=== PATIENT | female | born 1970 | race Caucasian/White ===

== ENCOUNTER 2022-11-18 14:09 | Outpatient (CLI) | payer BC, SELFPAY ==
--- NOTE | 2022-11-18 14:30 | MR_ITS ---
[address] [address] Phone:?[phone] Fax:?[phone] Referring Physician Information: Darrin Mortensen M.D. [id number] [facility] [address] Phone:?[phone] Fax:?[phone] Patient:Renzo Ortiz D.O.B:?1970 Sex:?Female Phone:?[phone] [facility] MRN:?[id number] Exam Date:?11/18/2022 EXAM: MRI EXAMINATION OF THE LEFT SHOULDER CLINICAL INFORMATION: Left shoulder pain. No specific injury. No history of surgery to this area. Possible rotator cuff tendon tear. TECHNICAL INFORMATION: Coronal STIR as well as axial, sagittal and coronal PD and T2-weighted images acquired. No prior studies for comparison. INTERPRETATION: Bones: There is no Hill-Sachs impaction deformity. There is a poorly defined appearance of marrow edema signal involving the lesser tuberosity of the humerus. There is no other bone marrow edema pattern. Rotator Cuff: There is a diffuse appearance of high-grade tearing involving the supraspinatus tendon insertion with areas of full-thickness involvement of the mid to posterior tendon insertion. Markedly attenuated torn tendon fibers remain situated lateral to the mid humeral head level. More normal caliber tendon fibers are situated midway between the glenohumeral joint and mid humeral head level. No fatty muscle belly atrophy. There is a 1 cm AP by 1.9 cm mediolateral segment of deep fiber partial tearing involving the infraspinatus tendon and maximally involving two thirds of the tendon fiber thickness. The tear is situated just proximal to the tendon insertion. The teres minor tendon is intact. There is a 1.2 cm craniocaudal segment of poorly defined and high-grade deep fiber partial tearing involving the superior subscapularis tendon. No appreciable rotator cuff muscle belly atrophy. Coracoacromial arch: There is no discrete subacromial osseous spur. The bony acromiohumeral interval is measuring 5 to 6 mm. There is an underlying thickening identified of the coracoacromial ligament. Acromioclavicular joint: There is a moderate appearance of AC joint DJD. No deformity of the underlying supraspinatus tendon. Biceps tendon: There is medial subluxation of the long head biceps tendon from the level of the superior bicipital groove. Tendinopathy with moderate grade partial thickness tearing and fraying of the tendon traversing this level. The tendon remains intact intra-articular. Glenohumeral joint and labrum: There is a small to moderate glenohumeral joint effusion. No discrete loose body within the joint. Osteochondral surfaces appear relatively preserved. No discrete SLAP tear. No other definite evidence for labral tear. No discrete paralabral cyst is identified. CONCLUSION: 1. Diffuse high-grade tearing along the supraspinatus tendon insertion with apparent areas of full-thickness involvement of the mid to posterior tendon. Markedly attenuated torn tendon fibers remain situated lateral to the mid humeral head level. More normal caliber tendon fibers are situated midway between the glenohumeral joint and mid humeral head level. No muscle belly atrophy. 2. There is a small to moderate-sized segment of partial-thickness deep fiber tearing of the infraspinatus tendon situated proximal to the tendon insertion and maximally involving two thirds of the tendon fiber thickness. 3. There is a moderate-sized segment of poorly defined high-grade deep fiber partial tear involving the superior subscapularis tendon. 4. Moderate AC joint DJD with mild to moderate narrowing of the acromiohumeral interval. 5. Biceps annelise lesion with medial subluxation of the long head biceps tendon from the superior bicipital groove. Tendinopathy with moderate grade partial thickness tearing and fraying of the tendon traversing this level. 6. No appreciable glenohumeral chondromalacia. There is a small to moderate joint effusion. KES Electronically signed on 11/21/2022 7:44:00 AM by Jayme Marks M.D.
== END 2022-11-18 14:10 | disposition home or self-care (01) ==
LOC: MRI 14:10
PROVIDERS: PCP Physician Assistant Medical; Visit Provider Orthopaedic Surgery Sports Medicine
DX: M25.512 Pain in left shoulder (principal); M75.102 Unspecified rotator cuff tear or rupture of left shoulder, not specified as traumatic; S46.812A Strain of other muscles, fascia and tendons at shoulder and upper arm level, left arm, initial encounter; M19.012 Primary osteoarthritis, left shoulder; M25.412 Effusion, left shoulder
CPT/HCPCS: 73221

== ENCOUNTER 2022-12-19 08:34 | Day surgery (SDC) | payer BC, SELFPAY ==
[2022-12-19] VITALS (14 sets, daily range): BP systolic 107–137; BP diastolic 69–99; PULSE 54–83; RESP 16; TEMP 36.2–36.8; O2SAT 90–97; BMI 39.7
[2022-12-19] MEDS: LACTATED RINGERS 1000 ML 1,000 ML 100 ML IV (09:20)
[2022-12-19] MEDS: SODIUM CHLORIDE 0.9 % (FLUSH) 10 ML SYRINGE IVF (09:20)
--- NOTE | 2022-12-19 09:55 | SUR.PREOP ---
TIME?OUT:?0957 PT/RN/MDA?VERIFICATION?OF?SURGICAL?SITE,?PROCEDURE,?AND?CONSENT OBTAINED?PRIOR?TO?INVASIVE?PROCEDURE.
[2022-12-19] MEDS: EPINEPHrine 1 MG in SODIUM CHLORIDE IRRIG SOLUTION 3,000 ML 9003 MG IRRIGATION ×6 (10:43→11:58)
--- NOTE | 2022-12-19 10:54 | W.ANESCHARGE ---
Anesthesia Charges Start Date/Time Anesthesia Start Date: 12/19/22 Anesthesia Start Time: 10:04 Stop Date/Time Anesthesia Stop Date: 12/19/22 Anesthesia Stop Time: 12:42
--- NOTE | 2022-12-19 10:55 | W.PM.NB ---
Nerve Block Nerve Block Time Seen by Provider: 09:59 Date Seen: 12/19/22 Type of block requested by surgeon for post-operative analgesia: supraclavicular Side: left Time out performed: Yes Verification of patient name: Yes Verification of date of : Yes Site marking: site marked Name of person performing procedure: Peter Continuous monitoring Was continuous monitoring of O2 sat, B/P, plasterer apprentice, recorded every 15 minutes?: Yes Procedure Checklist: sterile prep, needles and gloves Ultrasound guided. Images saved: Yes Medications given in 5ml increments after negative aspiration: Ropivicaine %: 0.5 mL: 20 Needle gauge: 22 Decadron (mg): 10 Precedex (mcg): 25 Patient tolerated procedure well: Yes Block Charges Block Charge (with Pro Fee): Brachial Plexus Use of Ultrasound Machine for Block: Yes- US Guidance/pain block
--- NOTE | 2022-12-19 12:25 | PM.ORPRC ---
Procedure Note Date of procedure: 12/19/22 Procedure: PREOPERATIVE DIAGNOSES: 1. Left shoulder rotator cuff tear. 2. Left shoulder AC degenerative joint disease, primary, moderate-severe 3. Left shoulder long of the biceps partial-thickness tearing and subluxation 4. Left shoulder labral tearing involving the anterior and superior aspect. 5. 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 Left shoulder subacromial impingement syndrome. POSTOPERATIVE DIAGNOSES: 1. Left shoulder rotator cuff tear-upper border subscapularis; full-thickness supraspinatus and anterior portion infraspinatus 2. Left shoulder AC degenerative joint disease, primary, moderate-severe 3. Left shoulder long of the biceps partial-thickness tearing and subluxation 4. Left shoulder labral tearing involving the anterior and superior aspect. 5. 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 Left shoulder subacromial impingement syndrome. NAME OF OPERATION: 1. Left shoulder arthroscopic rotator cuff repair-upper border subscapularis; also full-thickness supraspinatus and anterior portion infraspinatus 2. Left shoulder arthroscopic distal clavicle excision 3. Left shoulder arthroscopic extensive glenohumeral debridement including biceps tenotomy, debridement of biceps stump and labral torn tissue and humeral head loose chondral tissue 4. Left shoulder arthroscopic bursectomy, subacromial decompression/partial acromioplasty. SURGEON: Darrin Mortensen MD SHIP CLEANER: London Waters. Of note, a skilled sales assistant institutional sales was critical for this case to aide in patient positioning, suture manipulation, arm positioning, instrument positioning, and closure. ANESTHESIA: General plus preoperative supraclavicular block. EBL: 25 mL IMPLANTS: Arthrex 2.6 mm knotless FiberTak RC (x2); 4.75 mm BioComposite SwiveLock suture anchor (x1); 5.5 mm BioComposite SwiveLock suture anchor (x2). COMPLICATIONS: None evident INDICATIONS: The patient is a pleasant, 52-year-old female who has experienced left shoulder pain that has been increasing in recent time. Physical exam and imaging were consistent with a rotator cuff tear. Given their findings, as well as the weakness and pain, and inadequate response to nonoperative management, recommendation was made for surgery. FINDINGS: Exam under anesthesia revealed stable shoulder with excellent range of motion. The diagnostic arthroscopy revealed grade 3 chondromalacia humeral head anteriorly. The Subscapularis tendon was torn from its upper border with mild-moderate retraction. The long head of the biceps tendon was torn in a moderate grade partial-thickness manner near the bicipital groove. Additionally, it was subluxed out of the bicipital significantly. The superior rotator cuff tendon was found to be torn full-thickness throughout the entire supraspinatus and anterior 1/2 of the infraspinatus. The labrum was degeneratively frayed in the anterior and superior aspects. No loose bodies were identified within the pouch or subscapularis recess. PROCEDURE: Following a thorough discussion of risks, benefits, and alternatives, consent was obtained and the left shoulder was marked. The patient was brought to the operating room and placed supine on the operating table. Induction of anesthesia was completed after preoperative supraclavicular block was administered in preop holding. Appropriate time out was performed identifying proper patient, site, and procedure. 2 g IV Ancef was administered within 1 hour of incision preoperatively. The left upper extremity was prepped and draped in the appropriate sterile fashion using ChloraPrep prep. This was after the patient was positioned in the beach chair with their head in neutral alignment and all bony prominences well padded. The shoulder was insufflated with 20mL of normal saline via an 18g spinal needle from a posterior approach. An 11 blade skin incision allowed a blunt trochar to be inserted and diagnostic arthroscopy to be performed with the findings as noted above. An anterior portal was established with an outside in technique. This allowed the probe to be inserted and confirm the diagnostic arthroscopic findings. The shaver was then inserted and allowed debridement of the anterior and superior labrum as well as the biceps stump following arthroscopic biceps tenotomy. The anterior loose chondral tissue on the humeral head was also debrided with a shaver. Following this, the upper border subscapularis was repaired after debriding the lesser tuberosity with the shaver and [place] cautery. Subscapularis was captured in horizontal mattress fashion with a fiber tape suture. The tails were brought to a single anchor in the lesser tuberosity with excellent reapproximation of the subscap tendon and good excursion/tension. Thereafter, the subacromial space was entered. Here, a complete bursectomy and partial acromioplasty/subacromial decompression was performed with a combination of radiofrequency ablator, the shaver, and a 5.5 mm bur. Additionally, distal clavicle excision was performed with the bur. 8 mm of distal clavicle was resected based on the width of our bur. Further inspection of the supraspinatus and infraspinatus rotator cuff was performed. This identified the tear as noted above. The margins of the tear were debrided, and the greater tuberosity was debrided with a combination of the apollo cautery, shaver, and bur on reverse setting. After gentle decortication, a speed bridge configuration with a medial annelise was engaged. 2 knotless medial anchors were placed and the sutures were passed with a fiber link. The knotless mechanism suture tails were passed and cinched relatively tight but not fully. A tail from each of the medial row anchor FiberTapes were then brought to a lateral row anchor along with a luggage tag suture on the far posterior and far anterior aspect of the tail margins. Excellent reapproximation of the tissue to the greater tuberosity was achieved with broad footprint compression. Prior to anchor feedmobile driver removal, the eyelet sutures were tugged on for each anchor and found that the anchor had excellent stability within the bone. Following this, the knotless mechanism sutures were fully engaged with excellent security. The tails were cut accordingly. The shoulder was placed through range of motion and found to be stable. The rotator cuff was re-probed and found to be stable. Instruments were removed. Excess fluid was drained, closure performed with 4-0 Monocryl and Steri-Strips. Dressings were applied. Sling was applied. The patient was awoken from anesthesia and transferred to the PACU in stable condition. A skilled sales assistant institutional sales was critical for this case to aid in patient positioning, limb positioning, skill to manipulate arthroscopic instruments and camera, suture management, patient safety, and closure. PLAN: 1. Elbow, forearm, wrist and digit range of motion of operative extremity as tolerated. 2. Encouraged ice. 3. Percocet for pain as needed. 4. Sling at all times except for ROM and showering. 5. Follow up with PA visit in 1-2 weeks for wound check. Initiate physical therapy following that visit for passive range of motion. Initiate active assisted range of motion at 5-6 weeks due to a large tear size. May do pendulums now.
--- NOTE | 2022-12-19 12:56 | W.ANESCHARGE ---
Anesthesia Charges Start Date/Time Anesthesia Start Date: 12/19/22 Anesthesia Start Time: 10:04 Stop Date/Time Anesthesia Stop Date: 12/19/22 Anesthesia Stop Time: 12:42
== END 2022-12-19 14:39 | disposition home or self-care (01) ==
PROVIDERS: PCP Physician Assistant Medical; Visit Provider Orthopaedic Surgery Sports Medicine
PROC: (CPT 29805; principal; 2022-12-19 10:15)
DX: M75.102 Unspecified rotator cuff tear or rupture of left shoulder, not specified as traumatic (principal); M19.012 Primary osteoarthritis, left shoulder; S46.212A Strain of muscle, fascia and tendon of other parts of biceps, left arm, initial encounter; S43.432A Superior glenoid labrum lesion of left shoulder, initial encounter; M94.212 Chondromalacia, left shoulder; M75.42 Impingement syndrome of left shoulder; G89.18 Other acute postprocedural pain
CPT/HCPCS: 29827; 29828; 29826; 29823; 01630; 64415; 76942; C1713; J0171; J0330; J1100; J2250; J2405; J2704; J3010; J7120; L3670

== ENCOUNTER 2022-12-31 15:04 | Emergency (ER) | payer BC, SELFPAY ==
[2022-12-31 15:22] VITALS: BP 123/79; PULSE 73; RESP 18; TEMP 36.2; O2SAT 97; BMI 35.4
--- NOTE | 2022-12-31 15:36 | CRLHL7_ITS ---
For Patients: As a result of the Cures Act, medical imaging exams and procedure reports are released immediately into your electronic medical record. You may view this report before your referring provider. If you have questions, please contact your health care provider. INDICATION: Fall TECHNIQUE: Views of the left shoulder FINDINGS: Normal alignment. No acute fractures or acute osseous abnormalities. AC degenerative change. IMPRESSION: No acute fracture. Dictated by Flory Rae MD @ 12/31/2022 5:09:17 PM (Electronically Signed)
--- NOTE | 2022-12-31 15:37 | ED.GENADULT ---
HPI - General Adult General Chief complaint: Shoulder Injury/Pain Stated complaint: L shoulder injury Time Seen by Provider: 12/31/22 15:16 History of Present Illness HPI narrative: This 52-year-old female head her rotator cuff repaired of the left shoulder about 2 weeks ago. Today she tripped and fell onto her left side. She is wearing a sling and states that she wanted to the stretch out her arm to break the fall but was unable to do so because of the sling. She landed on her left upper arm. She has increased pain in her shoulder now. She did not hit her head or have any other injury. Related Data Home Medications Medication Instructions Recorded Confirmed cyanocobalamin (vitamin B-12) mcg subcut 11/11/22 12/29/22 1,000 mcg/mL injection solution (Dodex) duloxetine 60 mg capsule,delayed 60 mg PO DAILY 11/11/22 12/29/22 release Previous Rx's Medication Instructions Recorded oxycodone 5 mg tablet 5 mg PO Q4-8H PRN pain #10 tabs 12/29/22 oxycodone 5 mg capsule 5 mg PO Q6H PRN pain #10 caps 12/31/22 Allergies Allergy/AdvReac Type Severity Reaction Status Date / Time zolpidem Allergy Intermediate Verified 12/29/22 08:46 hydromorphone Allergy Mild Hives Verified 12/29/22 08:46 Penicillins Allergy Hives Verified 12/29/22 08:46 aspirin AdvReac Unknown post Verified 12/29/22 08:46 gastric bypass Review of Systems Status of ROS: Reports: 10 or more systems reviewed and unremarkable except as noted in History and below Narrative: Constitutional: No fevers, no weight gain or loss. Eyes: No discharge. No vision changes. HENT: No congestion, no sore throat, no ear pain. Cardiovascular: No chest pain, no palpitations. Respiratory: No shortness of breath, no wheezes, no cough. Gastrointestinal: No abdominal pain, no vomiting, no diarrhea. Genitourinary: No dysuria, no hematuria. Musculoskeletal: Left shoulder pain as described above. Skin: No rashes, no pruritis. Neurological: No dizziness, weakness, sensory change, speech change. Endo/Heme/Allergies: No bruising or bleeding. No polydipsia. Pysch: no suicidality, no anxiety, no insomnia. All other systems reviewed and are negative. PFSH PFS Medical History Metacarpal bone fracture ?S62.309A - Unspecified fracture of unspecified metacarpal bone, initial encounter for closed fracture (ICD-10) Crushing injury of left hand ?S67.22XA - Crushing injury of left hand, initial encounter (ICD-10) Closed head injury ?S09.90XA - Unspecified injury of head, initial encounter (ICD-10) Surgical History History of arthroscopy of left shoulder (12/19/22) ?Z98.890 - Other specified postprocedural states (ICD-10) H/O laparoscopy (10/30/06) ?Z98.890 - Other specified postprocedural states (ICD-10) H/O nasal septoplasty (11/20/06) ?Z98.890 - Other specified postprocedural states (ICD-10) History of bilateral tubal ligation (07/28/08) ?Z98.51 - Tubal ligation status (ICD-10) History of arthroscopy of right shoulder (06/05/09) ?Z98.890 - Other specified postprocedural states (ICD-10) H/O total hysterectomy with bilateral salpingo-oophorectomy (BSO) (08/10/09) ?Z90.710 - Acquired absence of both cervix and uterus (ICD-10) ?Z90.722 - Acquired absence of ovaries, bilateral (ICD-10) ?Z90.79 - Acquired absence of other genital organ(s) (ICD-10) History of arthroscopy of right shoulder (09/18/09) ?Z98.890 - Other specified postprocedural states (ICD-10) History of revision of total replacement of left knee joint (04/29/19) ?Z96.652 - Presence of left artificial knee joint (ICD-10) History of arthroscopy of right shoulder (01/30/19) ?Z98.890 - Other specified postprocedural states (ICD-10) History of total right knee replacement (03/27/18) ?Z96.651 - Presence of right artificial knee joint (ICD-10) History of total left knee replacement (01/16/18) ?Z96.652 - Presence of left artificial knee joint (ICD-10) History of repair of hiatal hernia (~2005) ?Z98.890 - Other specified postprocedural states (ICD-10) ?Z87.19 - Personal history of other diseases of the digestive system (ICD-10) History of cholecystectomy ?Z90.49 - Acquired absence of other specified parts of digestive tract (ICD-10) Family History Mother Ovarian cancer Father Pancreatic cancer Alcohol dependence Brother Hodgkins disease Lung cancer Social History Smoking Status: Never smoker How often do you have a drink containing alcohol: never AUDIT-C Alcohol total score: 0 Non-prescribed substance use: denies use Caffeine: Yes Are you using contraception or practicing any form of control: No service: No Exam Narrative: Exam Narrative: Constitutional: Well-developed, well-nourished, no acute distress. HEENT: Normocephalic, atraumatic. Neck: Normal range of motion. Nontender. Supple. Heart: Intact distal pulses. Lungs: No chest discomfort. No wheezes, rhonchi, or rales. Abdomen: Nontender. Back: Normal range of motion. Extremities: Left arm is in a sling. I did not remove the sling to examine range of motion. There is no sign of anterior fullness or point tenderness when palpating along the clavicle and upper arm. Skin: Intact. No rash. Warm. No erythema or pallor. Neurologic: No altered sensation. No weakness. Alert and oriented. Psychiatric: No suicidality. No anxiety or depression. No insomnia. Nursing notes and vitals signs are reviewed. Const: Vital Signs, click to edit/add: Vital Signs - 24 hr 12/31/22 15:22 Temperature 97.1 F L Pulse Rate [Pulse Oximeter] 73 Respiratory Rate 18 Blood Pressure [Ri ght Upper Arm] 123/79 Pulse Oximetry 97 Oxygen Delivery Me thod Room Air Course Vital Signs Vital signs: Initial Vital Signs Temperature 97.1 F L 12/31/22 15:22 Temperature Source Temporal Artery Scan 12/31/22 15:22 Pulse Rate 73 12/31/22 15:22 Pulse Rhythm Regular 12/31/22 15:22 Respiratory Rate 18 12/31/22 15:22 Blood Pressure 123/79 12/31/22 15:22 Blood Pressure Mean 93 12/31/22 15:22 Blood Pressure Position Supine 12/31/22 15:22 Pulse Oximetry 97 12/31/22 15:22 Oxygen Delivery Method Room Air 12/31/22 15:22 Vital Signs Temperature 97.1 F L 12/31/22 15:22 Pulse Rate 73 12/31/22 15:22 Respiratory Rate 18 12/31/22 15:22 Blood Pressure 123/79 12/31/22 15:22 Pulse Oximetry 97 12/31/22 15:22 Oxygen Delivery Method Room Air 12/31/22 15:22 Temperature 97.1 F L 12/31/22 15:22 Pulse Rate 73 12/31/22 15:22 Respiratory Rate 18 12/31/22 15:22 Blood Pressure 123/79 12/31/22 15:22 Pulse Oximetry 97 12/31/22 15:22 Oxygen Delivery Method Room Air 12/31/22 15:22 Medical Decision Making [facility] Narrative Medical decision making narrative: This patient has had a rotator cuff surgery done a couple weeks ago and today fell onto that same left shoulder. X-ray imaging here by my review with radiology report pending shows no sign of fracture or dislocation. The patient is having significant pain and did receive an intramuscular injection of morphine 10 mg. I advised her to follow-up with orthopedic clinic for further evaluation and treatment. She received a prescription for 10 more tablets of oxycodone 5 mg and for Toradol 10 mg, 15 tablets. Discharge Plan Discharge Clinical Impression: Injury of shoulder, left Patient Disposition: Home w/ Parent or Adult Condition: Stable Additional Instructions: Take medication as prescribed and needed. Follow up with MD or return if worsening. Prescriptions: New oxycodone 5 mg capsule 5 mg PO Q6H PRN (Reason: pain) Qty: 10 0RF No Action duloxetine 60 mg capsule,delayed release(DR/EC) 60 mg PO DAILY cyanocobalamin (vitamin B-12) [Dodex] 1,000 mcg/mL solution subcut Patient Comments: [NO ORIGINAL SIG] oxycodone 5 mg tablet 5 mg PO Q4-8H PRN (Reason: pain) Qty: 10 0RF Follow Up/Referrals: Blanca Millan PA-C [Primary Care Provider] - Stand Alone Forms: MyHealth Info Instructions
[2022-12-31] MEDS: MORPHINE 10 MG/ML inj IM (15:47)
== END 2022-12-31 16:56 | disposition home or self-care (01) ==
PROVIDERS: Emergency Provider Emergency Medicine Emergency Medical Services; PCP Physician Assistant Medical
DX: M25.512 Pain in left shoulder (principal); W01.0XXA Fall on same level from slipping, tripping and stumbling without subsequent striking against object, initial encounter
CPT/HCPCS: 73030; 96372; 99283; 99284; J2270

== ENCOUNTER 2023-01-13 07:53 | Outpatient (CLI) | payer BC, SELFPAY ==
--- NOTE | 2023-01-13 08:15 | MR_ITS ---
[address] [address] Phone:?[phone] Fax:?[phone] Referring Physician Information: Yousuf Carrasquillo [address] [facility] [address] Phone:?[phone] Fax:?[phone] Patient:?Cassandra Ortiz D.O.B:?1970 Sex:?Female Phone:?[phone] [facility] MRN:?[id number] Exam Date:?01/13/2023 EXAM: MRI OF THE LEFT SHOULDER CLINICAL INFORMATION: The patient is a 52-year-old with left shoulder pain. The patient fell following surgery. PRIOR SURGERY: The patient is status post rotator cuff repair. COMPARISON STUDIES: Comparison is made to the prior MRI examination dated 11/18/2022. TECHNICAL INFORMATION: Using a 1.5T MR scanner and a localizing shoulder surface coil: 3.0 mm?coronal obliques: PD, T2, STIR 3.0 mm?sagittal obliques: PD, T2 3.0 mm?axials: PD, T2 FINDINGS: Articular/Extraarticular collections: Effusion: Moderate. Low signal intensity debris within the joint space can be seen, in keeping with synovitis or intra-articular hemorrhage. Small loose bodies within the joint space cannot be excluded. Subacromial/subdeltoid: Moderate fluid is seen within the subacromial/subdeltoid bursa, in keeping with bursitis or bursal hemorrhage. Low signal intensity debris within the bursa is noted. Subcoracoid: No evidence for bursitis. Osseous structures: Proximal humerus: Proximal humerus is abnormal in appearance. There are postsurgical changes of recent rotator cuff repair with multiple surgical anchors in place. Moderate marrow edema can be seen within the greater and lesser tuberosity regions, in keeping with the recent surgical procedure and/or traumatic changes of the patient's recent fall. No definite evidence for well- defined displaced fracture of the proximal humerus can be seen, however there is backing out of the surgical anchor within the lesser tuberosity region discussed below. No evidence for well-defined injury along the articular surfaces can be seen. Glenoid: No acute bony abnormality of the glenoid fossa or glenoid neck can be seen. Acromioclavicular joint: There is evidence for prior acromioplasty and distal clavicular resection. Coracoacromial arch: Acromion morphology: Type I. No evidence for os acromiale. Acromiohumeral space: Within normal limits. Coracohumeral space: Moderately narrowed. Rotator cuff and deltoid: Supraspinatus: The patient is status post supraspinatus repair. There is an area of full-thickness, recurrent tearing of the distal supraspinatus tendon fibers seen on coronal series 7 image 14 and on sagittal series 8 image 8, measuring approximately 13 mm in mediolateral dimension and 10 mm in anteroposterior dimension. Strain and/or mild atrophic changes of the supraspinatus muscle belly can be seen on sagittal series 8 image 28. Indistinctness and irregularity of the remaining supraspinatus tendon fibers can be seen, in keeping with tendinosis and/or postsurgical change. Infraspinatus: Moderate infraspinatus tendinosis can be seen with thickening of the tendon and heterogeneous intrasubstance signal intensity. No full-thickness tearing or retraction is seen, however mild atrophic changes of the infraspinatus muscle belly are seen on sagittal series 8 image 25. Teres minor: No evidence for tendinosis, tearing, or associated muscle belly atrophy. Subscapularis: The patient is status post surgical repair of the subscapularis tendon. There is backing out of the surgical anchor within the lesser tuberosity seen on axial series 3 image 16 and on sagittal series 7 image 11. The backing out of measures approximately 7 mm in anteroposterior dimension. Additionally, there is a suspected area of full-thickness or near full-thickness tearing of the distal tendon fibers seen on axial series 3 image 47 and on sagittal series 8 image 11. The tearing measures 9 mm in craniocaudal dimension. No atrophic changes of the subscapularis muscle belly are noted. Deltoid: No evidence for strain or tearing. Biceps tendon: The intra-articular portion of the long head of the biceps tendon is not visualized. The biceps tendon is absent from the biceps sulcus. The findings are in keeping with intra-articular biceps rupture versus prior biceps tenodesis. Glenohumeral joint and labrum: Articular Cartilage: Chondromalacia and chondral thinning along the articular surfaces of the glenohumeral articulation can be seen. No definite osteoarthritic changes are present. Labrum: Degeneration, blunting, and poorly defined tearing of the superior, inferior, and anterior portions of the glenoid labrum can be seen. No definite paralabral ganglion cyst formation is identified. Capsular Soft Tissues: No definite capsular abnormalities of the glenohumeral joint are seen. No evidence for capsular tearing is present and there are no MR signs of adhesive capsulitis. CONCLUSION: 1. Status post supraspinatus and subscapularis repair. There is recurrent, full- thickness tearing of the supraspinatus tendon fibers with tearing of the subscapularis and backing out of the subscapularis tendon anchor. 2. Moderate infraspinatus tendinosis. 3. Status post acromioplasty and distal clavicular resection. 4. Intra-articular biceps rupture versus prior biceps tenodesis. 5. Chondromalacia and chondral loss can be seen along the articular surfaces of the glenohumeral articulation. 6. Moderate glenohumeral joint effusion with synovitis and/or intra-articular hemorrhage. 7. Subacromial/subdeltoid bursitis or bursal hemorrhage. 8. Marrow edema within the humerus, in keeping with recent surgery and/or posttraumatic change. No well-defined fracture is seen. AEC Electronically signed on 01/13/2023 1:31:00 PM by Cruzito Rudolph M.D.
== END 2023-01-13 07:54 | disposition home or self-care (01) ==
LOC: MRI 07:53
PROVIDERS: PCP Physician Assistant Medical; Visit Provider Physician Assistant Surgical
DX: M25.512 Pain in left shoulder (principal); M75.122 Complete rotator cuff tear or rupture of left shoulder, not specified as traumatic; M94.212 Chondromalacia, left shoulder; S49.92XA Unspecified injury of left shoulder and upper arm, initial encounter
CPT/HCPCS: 73221

== ENCOUNTER 2023-01-23 06:01 | Day surgery (SDC) | payer BC, SELFPAY ==
[2023-01-23] VITALS (12 sets, daily range): BP systolic 104–146; BP diastolic 68–92; PULSE 49–63; RESP 16; TEMP 35.6–36.6; O2SAT 92–100; BMI 41.1
[2023-01-23] MEDS: SODIUM CHLORIDE 0.9 % (FLUSH) 10 ML SYRINGE IVF (07:00)
[2023-01-23] MEDS: LACTATED RINGERS 1000 ML 1,000 ML 100 ML IV (07:00)
[2023-01-23] MEDS: MIDAZOLAM HCL 1 MG/ML inj IVP (07:25)
[2023-01-23] MEDS: fentaNYL 100 MCG/2 ML inj IVP (07:25)
[2023-01-23] MEDS: CEFAZOLIN 2 GM in 0.9 % SODIUM CHLORIDE Mini-bag 100 ML IVPB (07:45)
--- NOTE | 2023-01-23 07:54 | W.ANESCHARGE ---
Anesthesia Charges Start Date/Time Anesthesia Start Date: 01/23/23 Anesthesia Start Time: 07:32 Stop Date/Time Anesthesia Stop Date: 01/23/23 Anesthesia Stop Time: 10:30
--- NOTE | 2023-01-23 07:54 | W.PM.NB ---
Nerve Block Nerve Block Time Seen by Provider: 07:28 Date Seen: 01/23/23 Type of block requested by surgeon for post-operative analgesia: supraclavicular Side: left Time out performed: Yes Verification of patient name: Yes Verification of date of : Yes Site marking: site marked Name of person performing procedure: Peter Continuous monitoring Was continuous monitoring of O2 sat, B/P, youth nutritional monitor, recorded every 15 minutes?: Yes Procedure Checklist: sterile prep, needles and gloves Ultrasound guided. Images saved: Yes Medications given in 5ml increments after negative aspiration: Ropivicaine %: 0.5 mL: 20 Needle gauge: 22 Decadron (mg): 10 Precedex (mcg): 25 Patient tolerated procedure well: Yes Block Charges Block Charge (with Pro Fee): Brachial Plexus Use of Ultrasound Machine for Block: Yes- US Guidance/pain block
[2023-01-23] MEDS: EPINEPHrine 1 MG in SODIUM CHLORIDE IRRIG SOLUTION 3,000 ML 9003 MG IRRIGATION ×6 (08:08→09:50)
--- NOTE | 2023-01-23 08:53 | SUR.PREOP ---
TIME?OUT:?0725 PT/RN/MDA?VERIFICATION?OF?SURGICAL?SITE,?PROCEDURE,?AND?CONSENT OBTAINED?PRIOR?TO?INVASIVE?PROCEDURE.
--- NOTE | 2023-01-23 09:57 | PM.ORPRC ---
Procedure Note Date of procedure: 01/23/23 Procedure: PREOPERATIVE DIAGNOSES: 1. Left shoulder rotator cuff re-tear. 2. Left shoulder retained deep implant (anchors that pulled out from the bone) POSTOPERATIVE DIAGNOSES: 1. Left shoulder rotator cuff re-tear. 2. Left shoulder retained deep implant (anchors that pulled out from the bone) 3. Left shoulder anterior and superior degenerative labral tearing from the retear situation NAME OF OPERATION: 1. Left shoulder arthroscopic rotator cuff re-repair. 2. Left shoulder arthroscopic removal of deep implant (anchors that pulled out of bone) 3. Left shoulder arthroscopic limited glenohumeral debridement. SURGEON: Darrin Mortensen MD CONTROL SPECIALIST: London Waters. Of note, a skilled executive sales assistant was critical for this case to aide in patient positioning, suture manipulation, arm positioning, instrument positioning, and closure. ANESTHESIA: General plus preoperative supraclavicular block. EBL: 25 mL IMPLANTS: Arthrex 4.75 mm BioComposite SwiveLock suture anchor (x2); 5.5 mm BioComposite SwiveLock suture anchor (x3). COMPLICATIONS: None evident INDICATIONS: The patient is a pleasant, 52-year-old female who sustained a left shoulder rotator cuff tear in the past. This was repaired arthroscopically approximately 1 month ago (11/2022). Unfortunately, she had a fall within the last 1 week landing onto her elbow causing an axial load to left shoulder. This resulted in significant pain and weakness about her left shoulder. Repeat MRI showed a re-tear of the rotator cuff including anchors that had pulled out. Given these findings of weakness, pain, and retear as well as anchor pulling out, surgery was indicated. FINDINGS: Exam under anesthesia revealed stable shoulder with excellent range of motion. The diagnostic arthroscopy revealed relatively healthy chondral surfaces the glenohumeral joint.. The Subscapularis tendon was torn from its upper border. The previous sutures were identified. The anchor was found to be mcfp removed into the anterior soft tissues/pulled out. The long head of the biceps tendon was absent consistent with a previous biceps tenotomy. The superior rotator cuff tendon was found to be torn full-thickness through the entire supraspinatus and anterior portion of the infraspinatus. In addition, the medial anchors were starting to pull out from their bone position as well. The labrum was degeneratively frayed in the anterior and superior aspects. No loose bodies were identified within the pouch or subscapularis recess. PROCEDURE: Following a thorough discussion of risks, benefits, and alternatives, consent was obtained and the left shoulder was marked. The patient was brought to the operating room and placed supine on the operating table. Induction of anesthesia was completed after preoperative supraclavicular block was administered in preop holding. Appropriate time out was performed identifying proper patient, site, and procedure. 2 g IV Ancef was administered within 1 hour of incision preoperatively. The left upper extremity was prepped and draped in the appropriate sterile fashion using ChloraPrep prep. This was after the patient was positioned in the beach chair with their head in neutral alignment and all bony prominences well padded. The shoulder was insufflated with 20mL of normal saline via an 18g spinal needle from a posterior approach. An 11 blade skin incision allowed a blunt trochar to be inserted and diagnostic arthroscopy to be performed with the findings as noted above. An anterior portal was established with an outside in technique. This allowed the probe to be inserted and confirm the diagnostic arthroscopic findings. The shaver was then inserted and allowed debridement of the anterior and superior labrum. Following this, the upper border subscapularis was re-repaired after retrieving the anterior SwiveLock suture anchor from the soft tissue. The anchor was removed. The eyelet was removed. The suture was removed. Thereafter, the subscap was repaired again with suture tape in a horizontal mattress fashion anchored with a 5.5 mm SwiveLock suture anchor with good security. Thereafter, the subacromial space was entered. Here, a complete bursectomy was performed. This allowed visualization of the rotator cuff and tear of the supraspinatus. In addition, the medial row anchors were found to be unstable and were removed completely consistent with deep implant removal. The remaining sutures were all removed as well. Further inspection of the supraspinatus and infraspinatus rotator cuff was performed. This identified the re-tear as noted above. The margins of the tear were debrided, and the greater tuberosity was debrided with a combination of the apollo cautery, shaver, and bur on reverse setting. After gentle decortication, a speed bridge configuration with a medial annelise was engaged. 2 medial anchors were placed and the sutures were passed. The FiberTape sutures were passed independently to create a broader footprint. The eyelet suture tails were then retrieved and tied and cinched down for the medial annelise purpose. A tail from each of the medial row anchor FiberTapes were then brought to a lateral row anchor along with 1 of the tails from the medial annelise. Excellent reapproximation of the tissue to the greater tuberosity was achieved with broad footprint compression. Prior to anchor ambulance driver paramedic removal, the eyelet sutures were tugged on for each anchor and found that the anchor had excellent stability within the bone. The shoulder was placed through range of motion and found to be stable. The rotator cuff was re-probed and found to be stable. Instruments were removed. Excess fluid was drained, closure performed with 4-0 Monocryl and Steri-Strips. Dressings were applied. Sling was applied. The patient was awoken from anesthesia and transferred to the PACU in stable condition. A skilled executive sales assistant was critical for this case to aid in patient positioning, limb positioning, skill to manipulate arthroscopic instruments and camera, suture management, patient safety, and closure. PLAN: 1. Elbow, forearm, wrist and digit range of motion of operative extremity as tolerated. 2. Encouraged ice. 3. Percocet for pain as needed. 4. Sling at all times except for ROM and showering. 5. Follow up with PA visit in 1-2 weeks for wound check. Initiate physical therapy following that visit for passive range of motion. Initiate active assisted range of motion at 6 weeks due to more tenuous tissue quality given the retear situation. May do pendulums now.
--- NOTE | 2023-01-23 10:35 | W.ANESCHARGE ---
Anesthesia Charges Start Date/Time Anesthesia Start Date: 01/23/23 Anesthesia Start Time: 07:32 Stop Date/Time Anesthesia Stop Date: 01/23/23 Anesthesia Stop Time: 10:30
== END 2023-01-23 13:00 | disposition home or self-care (01) ==
PROVIDERS: PCP Physician Assistant Medical; Visit Provider Orthopaedic Surgery Sports Medicine
PROC: (CPT 29805; principal; 2023-01-23 07:45)
DX: S46.012A Strain of muscle(s) and tendon(s) of the rotator cuff of left shoulder, initial encounter (principal); S43.432A Superior glenoid labrum lesion of left shoulder, initial encounter; T84.328A Displacement of other bone devices, implants and grafts, initial encounter; G89.18 Other acute postprocedural pain
CPT/HCPCS: 29827; 29822; 20680; 01630; 64415; 76942; C1713; J0171; J0330; J0690; J1100; J2250; J2371; J2405; J2704; J2795; J3010; J7120; L3670

== ENCOUNTER 2023-04-18 07:30 | Outpatient (RCR) | payer BC, SELFPAY ==
--- NOTE | 2023-01-03 16:26 | PT.OPEX ---
PT [place] Outpatient Eval PT [facility] Outpatient Eval Start: 01/03/23 09:59 Freq: Status: Active Protocol: Document 01/03/23 09:59 ILIANA (Rec: 01/03/23 10:36 ILIANA [id number]) E-signed By Lisha Gagnon DPT Physical Therapy Outpatient Evaluation Insurance Information Recert Due Date 04/03/23 Insurance Name Medicaid,Blue Cross/Blue Shield Medical Diagnosis s/p L shoulder RCR, SAD, DCE, GH debridement, biceps tenotomy 12/19/22. Treating Diagnosis s/p L shoulder RCR, SAD, DCE, GH debridement, biceps tenotomy 12/19/22 with L shoulder pain, impaired L shoulder ROM, impaired L shoulder mobility/strength, impaired functional use of L shoulder/UE, currently restricted in L UE sling, interrupted sleep. Subjective Subjective Patient reports chronic L shoulder pain, limited ROM leading up to L RCR surgery . She denies any trauma leading up to surgery, wear and tear over the years leading up to her RC tear. She has been wearing L UE sling since surgery. Reports some pain issues after surgery but states L shoulder pain increased with a fall on Monday. She was out on her back patio and tripped over the hose. Landed on her L side/shoulder. She went to the ED on Monday after her fall. She was issued pain meds. Xrays were negative. Patient reports ongoing 10/10 constant pain since the fall. She is using ibuprofen during the day. Oxy and toradol before bed. She reports sleep is interrupted by pain. She is doing hand/wrist/elbow ROM, elbow ext stretching, codmans . She has follow up with [facility] Callahan this afternoon to assess her status after the fall. 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 Hx R RCR, L/R TKA Assessment Assessment/Impression Patient is a 52 year old female s/p L shoulder RCR, SAD , DCE, GH debridement, biceps tenotomy 12/19/22 with L shoulder pain, impaired L shoulder ROM, impaired L shoulder mobility/strength, impaired functional use of L shoulder/UE, currently restricted in L UE sling, interrupted sleep. She reports falling on Monday. She tripped over a hose on the back patio and landed on her L side/shoulder on the concrete. She went to the ED due to increased pain. She was issued pain meds, xrays were negative. She has f/u with ISMA Callahan in ortho this afternoon. She continues with her L UE sling. Per [facility] Callahan note from post op visit last week PROM for 4-6 weeks, AAROM starting at 5-6 weeks post op . Patient reports constant 10 /10 pain since the fall. She is sitting comfortably in the chair this session. Able to initiate PROM to L shoulder this session. PROM limited by pain, guarding. Oscillation to help with relaxation and to improve ranges. L shoulder PROM: flex 85 degrees, abd 60 degrees, IR 50 degrees, ER to neutral. Patient would benefit from skilled PT for pain/sx management, improved L shoulder ROM, improved L shoulder mobility/strength, return to functional use of L shoulder/UE, and establishment of HEP. Plan of Care Rehabilitation Potential Good Physical Therapy Goals 1. Decrease L shoulder pain to less than/equal to 4/10 with daily activities and with the progression of PT activities over the next 6-8 weeks. 2. Improve L shoulder PROM to WFL within 6-8 weeks to prepare for return to functional use of L shoulder/UE. 3. Improve L shoulder AROM to WFL within 10-12 weeks for return to functional use of L shoulder/ UE with daily/work activities. 4. Improve L shoulder/UE strength over the next 12-16 weeks for return to full functional use of L shoulder/UE with daily/ work activities. 5. Patient will be I with HEP within 16 weeks for progression toward above goals, ongoing self management of pain/sx, ongoing self improvements in ROM/strength/function, and for return to full functional use of L shoulder/UE with daily activities. Coordination/Communication With Referral Source Evaluation Billing Untimed Code Treatment Minutes 20 Complexity Moderate Certification Information Initial Certification Date 01/03/23 Ending Certification Date 04/03/23 Provider Signature Shows Agreement With POC & Medical Necessity Physician Signature & Date Requested Please Sign/Date Here Physician Comment/Change : Physician NPI Number #
--- NOTE | 2023-02-03 11:17 | PT.OPDNX ---
PT [place] Outpatient Daily Note PT [facility] Outpatient Daily Note Start: 01/03/23 09:59 Freq: Status: Active Protocol: Document 02/03/23 10:20 ILIANA (Rec: 02/03/23 10:35 ILIANA [id number]) E-signed By Lisha Gagnon DPT PT OP Daily Progress Note Visit Information Note Type Daily Note,Recert/Progress Note,Re-Evaluation Visit Number [id number] Insurance Authorized Visits - Insurance Information Recert Due Date 05/04/23 Insurance Name Medicaid,Blue Cross/Blue Shield Medical Diagnosis s/p L shoulder RCR, SAD, DCE, GH debridement, biceps tenotomy 12/19/22. s/p L shoulder RC re-repair . Treating Diagnosis s/p L shoulder RCR, SAD, DCE, GH debridement, biceps tenotomy 12/19/22 and re-repair 01/23/23 with L shoulder pain, impaired L shoulder ROM, impaired L shoulder mobility/ strength, impaired functional use of L shoulder/UE, currently restricted in L UE sling, interrupted sleep. Subjective Subjective Patient reports having L shoulder RC re-repair on 01/23. States she returned to work the next day. Patient reports ongoing L shoulder pain, rated 9/10. She was using pain meds but not anymore. States she tried tylenol and advil but they really don't help so she isn't taking anything for pain. Icing on occasion but not much as that really isn't helpful either. She is going without her L UE sling because it is uncomfortable. She had follow up yesterday with PA. Next follow up at 6 weeks for MD. She is doing her elbow, wrist, hand ROM and pendulum exercises at home. Precautions Treatment Precautions/Contraindications s/p L RCR 12/19/22 and re- repair 01/23/23 with L UE sling x 6 weeks, PROM L shoulder x 6 weeks from 01/23 re-repair per updated PT order. Hx R RCR, L/R TKA Home Exercise Home Exercise Comments hand/wrist/elbow ROM codmans Objective Other/Pertinent Objective Re-eval 10 min: Patient returns to PT now s/p L RC re- repair on 01/23/23. She is not wearing her L UE sling, states it is uncomfortable. Reviewed MD recommendations, precautions after surgery and now s/p L RC re-repair. Recommended that patient use her L UE sling to protect her re-repair as she is now 1 1/2 weeks out from surgery. Per PT order, ok for PROM L shoulder x 6 weeks. Progress to AA/AROM after 6 week follow up with MD. Reviewed L elbow /wrist/hand ROM and L shoulder codmans. Continued with L shoulder PROM this session. Patient Instructed in Risks/Benefits Yes Therapeutic Exercise Therapeutic Exercise Minutes (minutes) 20 Therapeutic Exercise: To Restore Review of L hand/wrist/elbow Functional Status ROM, elbow ext stretching, L shoulder codmans Supine L shoulder/UE PROM. Oscillation for relaxation. Patient PROM limited by tightness, pain, guarding. Oscillation helpful for relaxation and improved ranges . Treatment Minutes Untimed Code Treatment Minutes 10 Timed Code Treatment Minutes 20 Total Treatment Time 30 Billing Units Therapeutic Exercise Units 1 Re-Evaluation Units 1 Assessment/Impression Assessment/Impression Patient is s/p L shoulder RCR, SAD, DCE, GH debridement, biceps tenotomy 12/19/22. Patient fell 2 weeks after her RCR surgery and re-torn her RC. She is now s/p L shoulder RC re-repair on 01/23/23. She reports 9/10 L shoulder pain. She appears comfortable at rest and able to provide information this session without distress. Per new PT orders after RC re-repair on , perform PROM x 6 weeks , pendulums ok. Re-eval performed this session after her L shoulder RC re-repair. Continued this session with PROM. L shoulder PROM: flex 100 degrees, abd 90 degrees, IR 50 degrees, ER 10 degrees. Patient to continue with her elbow/hand/wrist ROM, pendulums, and use of L UE sling. Patient has follow up with MD at 6 weeks post op with plan of progression to AA /AROM at that time. Will continue with PROM until her MD follow up appt. Updated PT not for recert/progress note and sent to MD for signature. PT goals for RCR rehab are ongoing. Patient would benefit from skilled PT for pain/sx management, improved L shoulder ROM, improved L shoulder mobility/strength, return to functional use of L shoulder/UE, and establishment of HEP. Plan of Care Physical Therapy Goals 1. Decrease L shoulder pain to less than/equal to 4/10 with daily activities and with the progression of PT activities over the next 6-8 weeks. 2. Improve L shoulder PROM to WFL within 6-8 weeks to prepare for return to functional use of L shoulder/UE. 3. Improve L shoulder AROM to WFL within 10-12 weeks for return to functional use of L shoulder/ UE with daily/work activities. 4. Improve L shoulder/UE strength over the next 12-16 weeks for return to full functional use of L shoulder/UE with daily/ work activities. 5. Patient will be I with HEP within 16 weeks for progression toward above goals, ongoing self management of pain/sx, ongoing self improvements in ROM/strength/function, and for return to full functional use of L shoulder/UE with daily activities. Daily Plan of Care Continue per POC Recertification Information Initial Certification Date 01/03/23 Recertification Start Date 02/03/23 Recertification Due Date 05/04/23 Reasons to Continue Skilled Therapy see above note Rehabilitation Potential good Continued Plan of Care and Interventions 1-2x/week for RCR rehab Provider Signature Shows Agreement With POC & Medical Necessity Physician Comment/Change Comment or Changes Physician NPI Number #
--- NOTE | 2023-04-14 09:02 | PT.OPDNX ---
[facility] Out[facility] Daily Note PT [facility] Outpatient Daily Note Start: 01/03/23 09:59 Freq: Status: Active Protocol: Document 04/14/23 07:32 ILIANA (Rec: 04/14/23 08:58 ILIANA [id number]) E-signed By Lisha Gagnon DPT PT OP Daily Progress Note Visit Information Note Type Daily Note,Recert/Progress Note Visit Number [id number] Insurance Authorized Visits - Insurance Information Recert Due Date 06/13/23 Insurance Name Medicaid,Blue [employer] Medical Diagnosis s/p L shoulder RCR, SAD, DCE, GH debridement, biceps tenotomy 12/19/22. s/p L shoulder RC re-repair . Treating Diagnosis s/p L shoulder RCR, SAD, DCE, GH debridement, biceps tenotomy 12/19/22 and re-repair 01/23/23 with L shoulder pain, impaired L shoulder ROM, impaired L shoulder mobility/ strength, impaired functional use of L shoulder/UE, currently restricted in L UE sling, interrupted sleep. Subjective Subjective Patient reports being busy with work. She reports ongoing L shoulder pain at 8/ 10. Pain is constant. Ongoing popping, cracking with use. States she is able to use L shoulder/UE some but with pain. Sleep is interrupted, sleeping in the recliner. Not using pain meds or ice - they don't help so she doesn't take them. Has appt with MD today. Patient feels she is making some progress, but it has been slow and minimal. Precautions Treatment Precautions/Contraindications s/p L RCR 12/19/22 and re- repair 01/23/23. Hx R RCR, L/R TKA Home Exercise Home Exercise Comments hand/wrist/elbow ROM codmans shoulder rolls, scap sets table slide, countertop slide - flex, circles CW/CCW annelise flexion, scap wand - seated reaching wand - AAROM flex, scap, IR, ext Objective Patient Instructed in Risks/Benefits Yes Therapeutic Exercise Therapeutic Exercise Minutes (minutes) 32 Therapeutic Exercise: To Restore Review of HEP. Functional Status UBE x 5 min, fwd/retro, mid resistance annelise flexion, scap wall slide snow angels x 10 each direction wall slide flexion with lift off lat pull down - 5 plates - 2 x 20 CC shoulder ext, rows - 2 plates - x 20 each tricep ext - 3 plates - x 20 bilateral UE pull down - 3 plates x 20 PNF D1/D2 ext patterns - 2 plates with R, 1 plate with L x 20 each bicep curls - 2 plates x 20 wall ball - bouncing B/R/L, circles CW/CCW R/L seated hands together flexion 2 x 10 Manual Therapy Techniques Manual Therapy Minutes (minutes) 10 Manual Therapy Techniques Supine L GHJ mobs, shoulder ROM/manual stretching Treatment Minutes Timed Code Treatment Minutes 42 Total Treatment Time 42 Billing Units Manual Therapy Units 1 Therapeutic Exercise Units 2 Assessment/Impression Assessment/Impression Patient is s/p L shoulder RCR, SAD, DCE, GH debridement, biceps tenotomy 12/19/22 and s/ p re-repair on 01/23/23. She continues to report high pain levels, states it is 8/10 constant pain. Pain report has been the same for weeks with no change in patient report of pain levels. She appears to have some pain at times with exercises but otherwise appears comfortable at rest and with use of L UE below shoulder level. P/AA/ AROM remain tight, limited by soft tissue/capsule tightness and weakness. Patient self limits her P/AAROM exercises, able to get better ranges with PT assist or with VC to improve range/stretch. Instructed to use R UE to assist with some of the AAROM exercises including wall slides but patient will return to just L shoulder/UE motion dropping R UE back out of the exercises. AAROM flex 120 degrees, scap 120 degrees, ER 35 degrees, IR 55 degrees with over pressure stretching. Reviewed with patient that she needs to push into these bigger stretching with her HEP using the pulleys, table slides, wall slides, supine AAROM using R UE. She expresses understanding. AROM IR able to reach behind LB to mid/low t spine. Patient with shoulder compensation patterns with flex/abd/scap reaching up/out. Patient recently had a 2 week gap in PT, coming back with increased L shoulder tightness, stiffness and limited ROM. States she has been doing her HEP but results/progress have been limited. Performed supine P/AAROM, manual stretching, joint mobs to attempt to loosen up and improve ROM. Difficult for patient to relax, VC and oscillation to try to get relaxation and improved ROM but patient fighting against motion and has ongoing ST/ muscle/capsule tightness that is limiting ROM. AROM remains limited by pain and weakness. Patient feels she may have another retear of her RC or that scar tissue is blocking her motion. She is not interested in an injection which was mentioned by MD at previous visit. She is wondering if she had a another retear or about another surgery to remove scar tissue. Patient will discuss her progress and options with MD appt later today. Progress with PT has been slow, limited . Reviewed with patient that consistency with her HEP is very important if she wants to see gains in ROM and progress with strength/functional use of L shoulder/UE. Recheck in PT next week. Will add once a week through Apr for improved ROM, strength, and progression toward PT goals. Continue with PT POC. Plan of Care Physical Therapy Goals 1. Decrease L shoulder pain to less than/equal to 4/10 with daily activities and with the progression of PT activities over the next 6-8 weeks. 2. Improve L shoulder PROM to WFL within 6-8 weeks to prepare for return to functional use of L shoulder/UE. 3. Improve L shoulder AROM to WFL within 10-12 weeks for return to functional use of L shoulder/ UE with daily/work activities. 4. Improve L shoulder/UE strength over the next 12-16 weeks for return to full functional use of L shoulder/UE with daily/ work activities. 5. Patient will be I with HEP within 16 weeks for progression toward above goals, ongoing self management of pain/sx, ongoing self improvements in ROM/strength/function, and for return to full functional use of L shoulder/UE with daily activities. Daily Plan of Care Continue per POC Recertification Information Recertification Start Date 04/14/23 Recertification Due Date 06/13/23 Reasons to Continue Skilled Therapy see above note Rehabilitation Potential fair-good Continued Plan of Care and Interventions 1-2x/week Provider Signature Shows Agreement With POC & Medical Necessity Physician Comment/Change Comment or Changes
== END 2023-05-15 15:05 | disposition home or self-care (01) ==
PROVIDERS: PCP Physician Assistant Medical; Visit Provider Orthopaedic Surgery Sports Medicine
DX: M75.122 Complete rotator cuff tear or rupture of left shoulder, not specified as traumatic (principal); M19.012 Primary osteoarthritis, left shoulder; Z51.89 Encounter for other specified aftercare; S46.212A Strain of muscle, fascia and tendon of other parts of biceps, left arm, initial encounter
CPT/HCPCS: 97110; 97140; 97162; 97164

== ENCOUNTER 2023-04-26 08:55 | Outpatient (CLI) | payer BC, SELFPAY ==
--- NOTE | 2023-04-26 09:15 | MR_ITS ---
[address] [address] Phone:?[phone] Fax:?[phone] Referring Physician Information: Darrin Mortensen M.D. [address] [facility] [address] Phone:?[phone] Fax:?[phone] Patient:?Lizabeth Ortiz D.O.B:?1970 Sex:?Female Phone:?[phone] [facility] MRN:?[id number] Exam Date:?04/26/2023 EXAM: MRI of the LEFT SHOULDER, without contrast CLINICAL INFORMATION: Female, 53 years old, with left shoulder pain. INDICATION: Left shoulder pain, evaluate rotator cuff PRIOR SURGERY: History of prior surgery, date unspecified PLAIN FILMS: Radiographs 04/14/2023 COMPARISONS: MRI 01/13/2023 TECHNICAL INFORMATION: Using a 1.5T MR scanner and a localizing surface coil: Coronals: PD, T2FS Sagittals: PDFS, T2 Axials: PD, PDFS SEDATION: None CONTRAST: None FINDINGS: Bones: Proximal humerus: Moderate marrow edema seen in the humeral head in the region of surgical anchors likely postoperative. No humeral Hill-Sachs or reverse Hill- Sachs lesion/impaction or contusion. Glenoid: No fracture or marrow edema/pathology. No osseous Bankart lesion. Rotator cuff and muscles/tendons: Supraspinatus: Postoperative changes of supraspinatus tendon repair. The supraspinatus tendon is highly attenuated and friable in appearance with poorly defined high-grade suspected full-thickness bursal sided tearing of the mid distal tendon at the insertional footprint measuring approximately 5 mm in length (coronal series 7 image 11, and sagittal series 9 image 7-9). Mild to moderate muscle belly atrophy is mildly progressed from the prior exam. Infraspinatus: Moderate infraspinatus tendinosis with partial-thickness bursal sided tearing of the mid to posterior distal tendon (coronal series 7 image 15). This involves approximately one third tendon thickness, with articular sided fibers remaining attached. Mild muscle volume loss. Teres minor: No tendinopathy, tear or atrophy. Subscapularis: Status post operative changes of the subscapularis tendon. Redemonstrated back out of the surgical screw in the lesser tuberosity (axial series 4.1 image 17). Background measures approximately 7 mm. Small region of undersurface tearing of the far superior distal tendon, without high-grade or full-thickness tendon tear. No well-defined muscle belly atrophy. Deltoid: No strain or atrophy. Coracoacromial arch: Acromion morphology: Postoperative changes of acromioplasty, with adequate inferior decompression. Acromiohumeral space: The acromiohumeral space is within normal limits. Coracohumeral space: The coracohumeral space is within normal limits. Acromioclavicular joint: Joint: Postoperative changes of distal clavicle excision, with adequate inferior decompression. Ligaments: Coracoclavicular ligaments are intact. Bursae: Subacromial-subdeltoid: Moderate subacromial bursitis Subcoracoid: No convincing subcoracoid bursal thickening/bursitis. Biceps tendon: The intra-articular and extra-articular segments of the long head biceps tendon are again not identified. Glenohumeral joint: Effusion/cyst: Small glenohumeral joint effusion with synovitis. Articular cartilage: There is broad-based chondromalacia or chondral thinning of the humeral head and glenoid articular cartilage without full-thickness chondral defect. Loose bodies: Region of low signal intensity body or synovitis in the subscapularis recess measuring 8 mm (axial image 47). Labrum:?Blunting and fraying is seen of the superior labrum. Additional degeneration and/fraying posteriorly. No paralabral ganglion cyst is identified. Inferior glenohumeral ligament/axillary pouch:?Intact. The axillary pouch is normal in thickness and signal. No evidence of adhesive capsulitis or capsular injury. IMPRESSION: 1. Postoperative changes of supraspinatus tendon repair. The tendon is highly attenuated and friable in appearance, progressed from the prior exam, with high- grade suspected full-thickness tearing of the mid distal tendon measuring approximately 5 mm in AP dimension. Mild to moderate muscle belly atrophy is progressed from the prior exam. 2. Postoperative changes of the subscapularis tendon repair. Small region of undersurface tearing of the superior distal tendon, without high-grade or full- thickness tear. Redemonstrated backout of the lesser tuberosity surgical screw measuring 7 mm. 3. Moderate infraspinatus tendinosis with partial-thickness bursal sided tearing of the mid distal tendon. This is new from the prior exam. Mild muscle volume loss. 4. Status post acromioplasty and distal clavicle excision. 5. Nonvisualization of the long head biceps tendon consistent with biceps tenotomy versus proximal rupture and retraction. 6. 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 Small joint effusion with synovitis. Small intra-articular body or synovitis in the subscapularis recess. KME Electronically signed on 04/26/2023 3:14:00 PM by Adamaris Saldana M.D.
== END 2023-04-26 08:56 | disposition home or self-care (01) ==
LOC: MRI 08:56
PROVIDERS: PCP Physician Assistant Medical; Visit Provider Orthopaedic Surgery Sports Medicine
DX: M25.512 Pain in left shoulder (principal); S46.812A Strain of other muscles, fascia and tendons at shoulder and upper arm level, left arm, initial encounter; M94.212 Chondromalacia, left shoulder; M25.412 Effusion, left shoulder
CPT/HCPCS: 73221

== ENCOUNTER 2023-10-13 13:45 | Outpatient (RCR) | payer BC, SELFPAY | END 2024-01-23 15:38 | disposition home or self-care (01) | PROVIDERS: PCP Physician Assistant Medical; Visit Provider Physician Assistant | DX: Z47.1 Aftercare following joint replacement surgery (principal); M25.512 Pain in left shoulder; Z96.612 Presence of left artificial shoulder joint; Z74.09 Other reduced mobility; R29.898 Other symptoms and signs involving the musculoskeletal system; Z51.89 Encounter for other specified aftercare | CPT/HCPCS: 97110; 97140; 97161 ==

== ENCOUNTER 2024-07-08 13:30 | Outpatient (CLI) | payer BC, SELFPAY | END 2024-07-08 13:31 | disposition home or self-care (01) | LOC: MAMMO 13:30 | PROVIDERS: PCP Physician Assistant Medical; Visit Provider Physician Assistant Medical | DX: Z12.31 Encounter for screening mammogram for malignant neoplasm of breast (principal) | CPT/HCPCS: 77063; 77067 ==